=== PATIENT | male | born 1970 | race Caucasian/White ===

== ENCOUNTER → 2024-02-11 16:23 | Outpatient (REF) | payer OTHER, SELFPAY ==
[2024-02-11 17:23] LABS: % Basophils 0.3 % (0-2); % Eosinophils 1.3 % (0-6); % Immature Granulocytes 0.2 % (0-0.5); % Lymphocytes 35.9 % (20.5-51.1); % Monocytes 7.4 % (1.7-9.3); % Neutrophils 54.9 % (42.2-75.2); Absolute Eosinophils 0.1 10^3/uL (0-0.7); Absolute Lymphocytes 2.2 10^3/uL (1.2-3.4); Absolute Monocytes 0.5 10^3/uL (0.1-0.6); Absolute Neutrophils 3.3 10^3/uL (1.4-6.5); Hematocrit 45.7 % (39.0-52.0); Hemoglobin 15.5 g/dL (13.0-18.0); Mean Corp Hgb Conc. 33.9 g/dL (33.0-37.0); Mean Corpuscular Hgb 31.9 pg (27.0-31.0); Mean Platelet Volume 9.2 fL (7.4-10.4); Nucleated Red Blood Cells % 0 % (-); Platelet Count 231 10^3/uL (130-400); Red Blood Cell Count 4.86 10^6/uL (4.70-6.10); Red Cell Dist. Width 11.7 % (11.5-14.5); White Blood Cell Count 6.1 10^3/uL (4.8-10.8)
[2024-02-11 17:35] LABS: ALT (SGPT) 40 U/L (0-50); AST (SGOT) 30 U/L (17-59); Albumin 4.9 g/dl (3.5-5.0); Alkaline Phosphatase 69 U/L (38-126); Blood Urea Nitrogen 26 mg/dl (9-20); Carbon Dioxide 27 mmol/L (22-30); Chloride 101 mmol/L (98-107); Glucose 82 mg/dl (70-99); Potassium 4.5 mmol/L (3.5-5.1); Sodium 143 mmol/L (135-145); Total Bilirubin 0.8 mg/dl (0.2-1.3); eGFR > 60.00
== END ==
LOC: REG 16:23
PROVIDERS: ATTENDING PHYSICIAN Internal Medicine Cardiovascular Disease; FAMILY PHYSICIAN Family Medicine
DX: I20.0 Unstable angina (principal); E78.00 Pure hypercholesterolemia, unspecified; E11.9 Type 2 diabetes mellitus without complications; I10 Essential (primary) hypertension; R07.89 Other chest pain
CPT/HCPCS: 36415; 80053; 85025

== ENCOUNTER 2024-02-15 10:05 | Day surgery (SDC) | payer OTHER, SELFPAY ==
[2024-02-15] VITALS (13 sets, daily range): BP systolic 102–146; BP diastolic 69–86; BMI 32.6
[2024-02-15] MEDS: LOW STRENGTH ASPIRIN 81 MG PO ×2 (11:38)
[2024-02-15 13:22] LABS: ACT-LR - POC 369 Seconds (116-155)
[2024-02-15 13:55] LABS: ACT-LR - POC 268 Seconds (116-155)
--- NOTE | 2024-02-15 14:35 | ITS.CL.ANGIO ---
[employer] Operations Trainee - Angioplasty
Angioplasty
Procedure Report:
CARDIAC CATHETERIZATION REPORT
Date of Procedure: 02/15/2024
Referring: Jhonny Menjivar M.D.
INDICATION: Accelerating angina, numerous coronary artery disease risk factors.
PROCEDURE:
1. Left heart catheterization.
2. Coronary angiography
3. Successful IFR of the distal RCA.
4. Successful IVUS guided PCI of the proximal LAD.
ACCESS:
6 [place] right radial artery.
CATHETERS:
1. 5 [place] JR4.
2. 5 [place] JL 3.5.
3. 6 [place] JR4 guiding catheter.
4. 6 [place] EBU 3.5 guiding catheter.
HEMODYNAMIC DATA
Weight (kg): 105.2
AO (s/d/x, mmHg): 128/74/97
LV (s/x mmHg): 129/12
LEFT VENTRICULOGRAPHY: Not performed.
CORONARY ANGIOGRAPHY
Dominance: Right.
Left Main: Normal size, trifurcating vessel. There is no coronary artery disease.
LAD: Normal size vessel with an 80% lesion in the proximal vessel that spans the origin of the large diagonal, normalizing several centimeters distal to the D1 origin.
Ramus: Small size vessel supplying the proximal anterolateral wall. There is no coronary artery disease.
Circumflex: Normal size, nondominant vessel giving rise to 2 obtuse marginals. There are minor luminal irregularities.
RCA: Large size, dominant vessel. There is a 50% lesion in the distal RCA, immediately proximal to the RPDA origin.
INTERVENTION(S)
1. Successful IFR of the distal RCA 50% lesion, demonstrating nonocclusive disease (IFR = 0.96).
2. Successful PCI of the long, 80% proximal LAD lesion spanning the origin of the large diagonal (overlapping Xience Skypoint 3.0 x 33, 3.0 x 18 CHITRA, postdilated with a 3.0 NC balloon) with reduction in stenosis to 0%, maintaining FLAVIO-3 flow.
Narrative:
The decision was made to perform physiologic testing. The diagnostic catheter was removed over a wire and exchanged for a(n) 6 [place] JR4 guiding catheter. The guiding catheter was advanced into the ascending aorta and seated in the right coronary
artery. Additional heparin was given to obtain an ACT greater than 250 seconds. An iFR wire was zeroed outside of the body, then inserted into the guiding sheath. The wire was advanced and the transducer was normalized just outside of the guiding
catheter tip. The wire was advanced into the RPDA, distal to the 50% RCA lesion. Three iFR measurements were taken. The lesion was determined to be nonocclusive (0.96).
The decision was made to proceed with percutaneous coronary intervention. The 6 [place] JR4 guiding catheter was removed over a wire and a 6Fr EBU 3.5 guiding catheter was advanced to the aortic root and seated in the left main coronary artery.
Additional heparin was given and a Power Turn Flex wire was advanced into the distal LAD. A BMW wire was advanced into the diagonal artery for protection. The 80% proximal LAD lesion was predilated with a 2.0 x 12 semi-compliant balloon to 12 sherri.
There was minimal expansion of the lesion with the 2.0 x 12 balloon. A 2.75 x 20 NC balloon was advanced and the lesion was dilated to 12 sherri with a much better response. The semi-compliant balloon was removed and a Xience Skypoint 3.0 x 33
drug-eluting stent was advanced. Meticulous care was taken while positioning the stent. It was clear that this stent would cover the distal aspect of the lesion but would not cover the entirety of the lesion. The stent was deployed at 12
atmospheres. The stent balloon was removed. A Xience Skypoint 3.0 x 18 drug-eluting stent was advanced. The distal aspect of the stent was seated within the proximal aspect of the first stent. Meticulous care was taken while positioning the
proximal edge of the stent, ensuring adequate coverage of the entire lesion. The stent was deployed at 12 sherri. The stent balloon was withdrawn. A 3.0 x 20 noncompliant balloon was advanced into the stent and the distal stent was postdilated to 12
atmospheres. The mid stent was dilated to 14 sherri. The proximal stent including the overlap was dilated to 16 sherri.
The decision was made to perform intracoronary imaging. An IVUS catheter was advanced through the guiding catheter and into the ostium of the artery. Ring down was performed once the imaging crystal was no longer inside of the guiding catheter. The
IVUS catheter was advanced into the mid LAD, beyond the stented segment. Intravascular ultrasound was performed in a retrograde fashion using a slow pullback. Intracoronary imaging demonstrated excellent stent apposition and expansion throughout the
entire stented segment with appropriate sizing. The IVUS catheter was withdrawn.
Angiography was performed in orthogonal views, confirming good stent expansion and an excellent angiographic result. The coronary wire was withdrawn and the guide was disengaged from the artery. The catheter was removed over a standard J-wire.
Closure Device: Vascular band.
Radiation (mGy): 1365.61
DAP (cm2.Gy): 96.7026
Fluoroscopy time (minutes): 17.3
Sedation time (minutes): 69
CONCLUSIONS
1. Right dominant circulation with a nonocclusive 50% lesion in the distal RCA (IFR = 0.96) and a long, 80% lesion in the proximal LAD spanning the origin of the diagonal, status post successful PCI (overlapping Xience Skypoint 3.0 x 33, 3.0 x 18
CHITRA, postdilated with a 3.0 NC balloon) with reduction in stenosis to 0%, maintaining FLAVIO-3 flow.
2. Normal filling pressures (LVEDP = 12 mmHg at 105.2 kg).
RECOMMENDATIONS:
1. Expectant management after cardiac catheterization via right radial approach.
2. Limited weight bearing on the right for one week.
3. Dual antiplatelet therapy with aspirin and clopidogrel for at least 12 months, followed by aspirin indefinitely.
4. Aggressive secondary prevention with high-dose, high potency statin.
5. Echocardiogram ordered and pending.
6. Guideline directed medical therapy as hemodynamics will tolerate.
7. Referral to cardiac rehab.
Copy to: Jhonny Menjivar M.D., Fausto Marquis D.O.
Nicolas Cavazos DO, FACC, FACP
--- NOTE | 2024-02-15 17:17 | W.PN.UPDATE ---
Update Note
Progress Note Update
Pt seen post LAD PCI w/2 overlapping CHITRA. Right radial cath site without ht/bleeding, non tender. Post EKG NSR 60s, no acute changes. Pt understands importance of uninterrupted DAPT w/asa, plavix. Will hold synjardy (metformin combo) for 48 hours
post cath, resume on 02/17 in AM. Cardiac rehab consulted. Followup at [facility] arranged. Home today if cath site/tele remain stable.
== END 2024-02-15 18:45 | disposition home or self-care (01) ==
LOC: CATH 10:05
PROVIDERS: ATTENDING PHYSICIAN Internal Medicine Cardiovascular Disease; FAMILY PHYSICIAN Family Medicine
DX: I25.110 Atherosclerotic heart disease of native coronary artery with unstable angina pectoris (principal); Z79.02 Long term (current) use of antithrombotics/antiplatelets; Z79.82 Long term (current) use of aspirin; Z79.4 Long term (current) use of insulin; Z79.899 Other long term (current) drug therapy
CPT/HCPCS: 92978; 93799; 85347; 93005; 93458; C1725; C1753; C1769; C1874; C1887; C1894; C9600; Q9967

== ENCOUNTER 2024-02-22 17:24 | Emergency (ER) | payer OTHER, SELFPAY ==
[2024-02-22 17:31] VITALS: BP 149/87
--- NOTE | 2024-02-22 18:13 | ED.SKININJ ---
HPI-Injury
General
Chief Complaint: Skin Problem
Source: patient
Exam Limitations: none
Time Seen by Provider: 02/22/24 18:10
Nursing documentation reviewed up to this point in time: agreed with
History of Present Illness-Injury
Initial Injury comments:
53 yo male with h/o L heart cath via radial arter with stents of RCA and LAD 02/15/24 presents stating he has a bruise on inner right thigh and no recollection of injury. Is concerned as his mother had a blood clot in her leg. He's had 'whooshing'
sounds in his head at night 'every once in a while' for years but now is concerned he may have an 'aneurysm or something...since my heart arteries were blocked, what's to say I don't have a blockage in my brain.'He denies headache, head injury, neck
pain.
Past History
Past History
ED Past Medical History: HTN, Hypercholesterolemia and IDDM
ED Past Surgical History: Cardiac (cath w stents) and Orthopedic
Review of Systems
Review of Systems
Allergies reviewed?: Yes
All Other Systems: ROS reviewed and negative except as documented in HPI and ROS
Constitutional: Denies fever, fatigue or chills
Respiratory: Denies cough or trouble breathing
Cardiac: Denies chest pain
ABD/GI: Denies abdominal pain or nausea
Musculoskeletal: Reports no symptoms
Skin: Reports other (bruise inner left thigh)
Neurological: Reports no symptoms
Phy Exam
Physical Exam
Physical Exam:
GENERAL: No acute distress. A&Ox3.
CONSTITUTIONAL: Afebrile.
EYES: PERRL, conjunctivae normal
Head: normocephalic/AT
Neck: Supple
ENMT: moist mucus membranes, Pharynx nl,m TMs normal
RESPIRATORY: Regular respirations, nonlabored, lungs clear.
CARDIOVASCULAR: Regular rate and rhythm, no murmurs, no rubs.
GI: Soft, nontender, normal BS
MUSCULOSKELETAL: Moves with ease. Well perfused.
SKIN: Warm, dry, pink
PSYCH: Normal mood and affect. Well kept, interactive and appropriate
NEUROLOGIC: Awake, alert and oriented. No focal neurological deficits. ambulates well with steady gait.
Course
Orders/Labs/Results
Orders:
Orders
02/22/24 18:24
US Periph Venous LOWER Ext LT Urgent
Comment:
Reason For Exam: bruise mid medial thigh
02/22/24 18:44
Complete Blood Count/No Diff Urgent
Abnormal Lab Results
02/22/24
18:44
MCH 32.1 H pg
(27.0-31.0)
RDW 11.4 L %
(11.5-14.5)
02/22/24 18:44
Vital Signs
Initial and Last Documented VS:
Initial Vital Signs
Temp Pulse Resp BP Pulse Ox
98.0 F 62 16 149/87 98
02/22/24 17:31 02/22/24 17:31 02/22/24 17:31 02/22/24 17:31 02/22/24 17:31
Last Documented Vital Signs
Temp Pulse Resp BP Pulse Ox
98.0 F 62 16 149/87 98
02/22/24 17:31 02/22/24 17:31 02/22/24 17:31 02/22/24 17:31 02/22/24 17:31
MDM/Problems Addressed
MDM/Problems Addressed:
53 yo male with h/o L heart cath via radial arter with stents of RCA and LAD 02/15/24 presents stating he has a bruise on inner right thigh and no recollection of injury. Is concerned as his mother had a blood clot in her leg. He's had 'whooshing'
sounds in his head at night 'every once in a while' for years but now is concerned he may have an 'aneurysm or something...since my heart arteries were blocked, what's to say I don't have a blockage in my brain.'He denies headache, head injury, neck
pain.
7:15 PM:
CBC normal
Ultrasound reveals no DVT.
Patient reassured
Stable for discharge
He will discuss his head symptoms with PCP. They are not acute, are only occasional, worse at night, no neuro deficits.
*Critical Care Note
Total Time (30-74mins, 75-104mins- exclusive of procedures): Not Applicable
ED Attending Note
-
Portions of this chart may have been created with voice recognition software.� Occasional wrong word or��sound alike� substitutions may have occurred due to the inherent limitations of voice recognition software.
Discharge Plan
Departure
Patient Disposition: Home (Routine Discharge)
Date of Disposition: 02/22/24
Time of Disposition: 19:34
Patient with high blood pressure during this ER visit?: No
Condition: Good
Discharge Problem:
Superficial bruising of thigh
Instructions: Contusion
Prescriptions:
No Action
losartan 50 mg Tablet
50 mg PO DAILY
repaglinide 1 mg Tablet
1 mg PO TID
rosuvastatin 20 mg Tablet
20 mg PO DAILY
red yeast rice 600 mg Capsule
1,200 mg PO DAILY
cholecalciferol (vitamin D3) [Vitamin D3] 125 mcg (5,000 unit) Tablet
125 mcg PO DAILY
Synjardy XR 25-1,000 mg Tablet, Ir - Er, Biphasic 24hr
1 tab PO DAILY
insulin glargine U-300 conc [Toujeo Max U-300 SoloStar] 300 unit/mL (3 mL) Insulin Pen
14 unit SC DAILY
[place] 3 tablet
2 PO DAILY
clopidogrel 75 mg tablet
75 mg PO DAILY Qty: 90 3RF
aspirin 81 mg tablet,delayed release (DR/EC)
81 mg PO DAILY Qty: 1 0RF
nitroglycerin 0.4 mg tablet, sublingual
0.4 mg sublingual [id number] PRN (Reason: chest pain) Qty: 25 2RF
Referrals:
Fausto Marquis, [Family Provider] - Call in 1-3 days for appt
Activity Restrictions/Additional Instructions:
As we discussed, Ultrasound shows no clot.
Please discuss your concern about the 'whooshing' in your head you get occasionally.
It doesn't sound like anything worrisome at this point.
Interventions
Interventions:
*Risk Screen - Suicide Last Done: 02/22/24 17:31
*Neglect/Abuse Screening Last Done: 02/22/24 17:31
ED- Fall Risk Assessment Last Done: 02/22/24 19:51
*Nursing Disposition Last Done: 02/22/24 19:51
Discharge Date and Time
Discharge Date/Time: 02/22/24 19:54
Print Language: BELIZEAN
[2024-02-22 18:48] LABS: Hematocrit 43.3 % (39.0-52.0); Hemoglobin 15.5 g/dL (13.0-18.0); Mean Corp Hgb Conc. 35.8 g/dL (33.0-37.0); Mean Corpuscular Hgb 32.1 pg (27.0-31.0); Mean Corpuscular Volume 89.6 fL (80.0-94.0); Mean Platelet Volume 9.3 fL (7.4-10.4); Platelet Count 211 10^3/uL (130-400); Red Blood Cell Count 4.83 10^6/uL (4.70-6.10); Red Cell Dist. Width 11.4 % (11.5-14.5); White Blood Cell Count 6.9 10^3/uL (4.8-10.8)
== END 2024-02-22 19:54 | disposition home or self-care (01) ==
LOC: EMR 17:24
PROVIDERS: Registered Nurse; EMERGENCY PHYSICIAN Emergency Medicine; FAMILY PHYSICIAN Family Medicine
DX: S70.12XA Contusion of left thigh, initial encounter (principal); X58.XXXA Exposure to other specified factors, initial encounter; I10 Essential (primary) hypertension; E11.9 Type 2 diabetes mellitus without complications; E78.00 Pure hypercholesterolemia, unspecified; Z98.890 Other specified postprocedural states; Z95.5 Presence of coronary angioplasty implant and graft; Z79.4 Long term (current) use of insulin; Z79.82 Long term (current) use of aspirin
CPT/HCPCS: 99284; 85027; 93971

== ENCOUNTER → 2024-03-16 11:21 | Outpatient (REF) | payer OTHER, SELFPAY | LOC: HWRCS 11:21 | PROVIDERS: ATTENDING PHYSICIAN Internal Medicine Cardiovascular Disease; FAMILY PHYSICIAN Family Medicine | DX: I20.0 Unstable angina (principal); I10 Essential (primary) hypertension; E78.00 Pure hypercholesterolemia, unspecified | CPT/HCPCS: 93306 ==